=== PATIENT | female | born 1975 | race Two or more races ===

== ENCOUNTER 2023-02-11 18:01 | Emergency (ER) | payer OTHER ==
[~2023-02-11] VITALS: Ht 157.5 cm; Wt 122.0 kg
[2023-02-11] MEDS ORDERED: traMADol HCL 50 MG TAB PO ONE (18:45)
[2023-02-11] MEDS ORDERED: TRAM-297 PO (19:06)
[2023-02-12 00:58] VITALS: BP 160/99
== END 2023-02-12 01:05 | disposition home or self-care (01) ==
LOC: ER 18:04
DX: S86.811A Strain of other muscle(s) and tendon(s) at lower leg level, right leg, initial encounter (principal); M79.604 Pain in right leg; Z88.1 Allergy status to other antibiotic agents; Z98.51 Tubal ligation status; Z98.890 Other specified postprocedural states; X58.XXXA Exposure to other specified factors, initial encounter; Y93.89 Activity, other specified; Y92.89 Other specified places as the place of occurrence of the external cause; Y99.8 Other external cause status
CPT/HCPCS: 93971